=== PATIENT | female | born 1985 | race Caucasian/White ===

== ENCOUNTER 2022-12-28 13:53 | Outpatient (CLI) | payer BC, SELFPAY ==
--- NOTE | 2022-12-28 14:00 | CRLHL7_ITS ---
For Patients: As a result of the Cures Act, medical imaging exams and procedure reports are released immediately into your electronic medical record. You may view this report before your referring provider. If you have questions, please contact your health care provider. INDICATION: First trimester scan, establish dates. COMPARISON: None. TECHNIQUE: Real-time lake-scale imaging of the pelvis was performed. FINDINGS: Sonographic imaging demonstrates a single living intrauterine gestation. The embryo demonstrates a regular cardiac rate measuring 173 beats per minute. The embryo`s crown-rump length measurement of 4.2 cm corresponds to a gestational age of 11 weeks 1 day with a sonographic due date of . There is a normal-appearing yolk sac. There are no gross abnormalities noted within the embryo at this early state of development. The gestational sac has a normal appearance. There is no evidence of a perigestational hemorrhage. The amount of fluid within the sac appears appropriate for gestational age. The cervix is closed. The myometrium appears normal. The ovaries are not visualized. There are no suspicious fluid collections noted in the cul-de-sac. IMPRESSION: Single living intrauterine with sonographic gestational age 11 weeks 1 day and sonographic due date 07/18/2023. Dictated by Jeffrey Royal MD @ 12/28/2022 3:53:39 PM (Electronically Signed)
== END 2022-12-28 13:54 | disposition home or self-care (01) ==
LOC: US 13:54
PROVIDERS: PCP Family Medicine; Visit Provider Registered Nurse
DX: Z34.91 Encounter for supervision of normal pregnancy, unspecified, first trimester (principal); Z3A.09 9 weeks gestation of pregnancy
CPT/HCPCS: 76817; 82565; 82570; 84156; 84450; 84460; 84520; 84550; 86592; 86703; 86762; 86787; 86803; 86850; 86900; 86901; 87086; 87340; 87491; 87591

== ENCOUNTER 2023-01-11 10:43 | Outpatient (CLI) | payer BC, SELFPAY | END 2023-01-11 10:44 | disposition home or self-care (01) | PROVIDERS: PCP Family Medicine; Referring Provider Family Medicine; Visit Provider Obstetrics & Gynecology | DX: O26.891 Other specified pregnancy related conditions, first trimester (principal); R10.9 Unspecified abdominal pain; Z3A.13 13 weeks gestation of pregnancy | CPT/HCPCS: 87086 ==

== ENCOUNTER 2023-02-27 13:30 | Outpatient (CLI) | payer BC, SELFPAY | END 2023-02-27 13:31 | disposition home or self-care (01) | LOC: US 13:30 | PROVIDERS: PCP Family Medicine; Visit Provider Pediatrics Neonatal-Perinatal Medicine | DX: O09.522 Supervision of elderly multigravida, second trimester (principal); O98.512 Other viral diseases complicating pregnancy, second trimester; U07.1 COVID-19; Z3A.19 19 weeks gestation of pregnancy | CPT/HCPCS: 76811 ==

== ENCOUNTER 2023-04-22 13:34 | Outpatient (CLI) | payer BC, SELFPAY | END 2023-04-22 13:35 | disposition home or self-care (01) | LOC: NFLDREF 04-25 07:34 | PROVIDERS: PCP Family Medicine; Referring Provider Family Medicine; Visit Provider Obstetrics & Gynecology | DX: Z34.92 Encounter for supervision of normal pregnancy, unspecified, second trimester (principal); Z3A.27 27 weeks gestation of pregnancy | CPT/HCPCS: 86592 ==

== ENCOUNTER 2023-04-29 12:45 | Outpatient (CLI) | payer BC, SELFPAY ==
--- NOTE | 2023-04-29 13:00 | CRLHL7_ITS ---
For Patients: As a result of the Century Cures Act, medical imaging exams and procedure reports are released immediately into your electronic medical record. You may view this report before your referring provider. If you have questions, please contact your health care provider. INDICATION: Hypertension. COMPARISON: 02/27/2023 TECHNIQUE: Real time lake scale imaging of the fetus was performed as well as color Doppler and spectral Doppler analysis of the umbilical artery. FINDINGS: Sonographic imaging demonstrates a single living intrauterine gestation. Fetus demonstrates a regular cardiac rate of 134 beats per minute. Fetus has a variable position. The placenta lies anteriorly. Amniotic fluid volume appears normal and there is a single deepest vertical pocket: 6.5 cm. The estimated weight is 1362gm which lies at the 63rd %. On the prior OB ultrasound exam dated 02/27/2023 the estimated weight was at the 63rd%. BPD 44th percentile. HC 38th percentile. AC 79th percentile. FL 34th percentile. The HC/AC ratio measures 1.05 range (0.99-1.21). IMPRESSION: Sonographic gestational age 29 weeks 1 day and sonographic due date 07/14/2023. Estimated weight 63rd percentile. Abdominal circumference 79th percentile. Dictated by Jeffrey Royal MD @ 04/30/2023 4:55:10 PM (Electronically Signed)
== END 2023-04-29 12:46 | disposition home or self-care (01) ==
LOC: US 12:46
PROVIDERS: PCP Family Medicine; Visit Provider Obstetrics & Gynecology
DX: O10.913 Unspecified pre-existing hypertension complicating pregnancy, third trimester (principal); Z3A.29 29 weeks gestation of pregnancy
CPT/HCPCS: 76816

== ENCOUNTER 2023-05-27 12:56 | Outpatient (CLI) | payer BC, SELFPAY ==
--- NOTE | 2023-05-27 13:00 | CRLHL7_ITS ---
For Patients: As a result of the Century Cures Act, medical imaging exams and procedure reports are released immediately into your electronic medical record. You may view this report before your referring provider. If you have questions, please contact your health care provider. INDICATION: HYPERTENSION TECHNIQUE: Real time lake scale imaging of the fetus was performed. COMPARISON: 04/29/2023 FINDINGS: Sonographic imaging demonstrates a single living intrauterine gestation. Fetus demonstrates a regular cardiac rate of 171 beats per minute. Fetus has a vertex position. The placenta lies anteriorly. Amniotic fluid volume appears normal and there is a single deepest pocket of 8.1 cm. SARA 17.3 cm. The estimated weight is 2325gm which lies at the 83rd %. On the prior OB ultrasound dated 04/29/2023 the estimated weight was at the 63rd percentile. BPD 82nd percentile. HC 76th percentile. AC greater than 97th percentile. FL 6th percentile. The fetus was active and demonstrated normal breathing movements. There was normal flexion and extension of the trunk and extremities. IMPRESSION: Normal biophysical profile score 8/8. Sonographic gestational age 33 weeks 6 days and sonographic due date 07/09/2023. Sonographic age 9 days ahead of the clinical age. Estimated weight 83rd percentile. Abdominal circumference greater than 97th percentile. Dictated by Jeffrey Royal MD @ 05/28/2023 10:34:05 AM (Electronically Signed)
== END 2023-05-27 12:57 | disposition home or self-care (01) ==
LOC: US 12:57
PROVIDERS: PCP Family Medicine; Visit Provider Obstetrics & Gynecology
DX: O10.913 Unspecified pre-existing hypertension complicating pregnancy, third trimester (principal); Z3A.30 30 weeks gestation of pregnancy
CPT/HCPCS: 76816; 76819

== ENCOUNTER 2023-06-03 13:06 | Outpatient (CLI) | payer BC, SELFPAY ==
--- NOTE | 2023-06-03 13:00 | CRLHL7_ITS ---
For Patients: As a result of the Century Cures Act, medical imaging exams and procedure reports are released immediately into your electronic medical record. You may view this report before your referring provider. If you have questions, please contact your health care provider. INDICATION: ESSENTIAL HYPERTENSION COMPARISON: 05/27/2023 TECHNIQUE: Real time lake scale imaging of the fetus was performed. Without non-stress testing. FINDINGS: Sonographic imaging demonstrates a single living intrauterine gestation. Fetus demonstrates a regular cardiac rate of 136 beats per minute. Fetus has a cornelius breech position. The amniotic fluid volume appears normal and there is a single deepest pocket measurement of 6.8 cm. The fetus was active and demonstrated normal breathing movements. There was normal flexion and extension of the trunk and extremities. IMPRESSION: Normal biophysical profile score of 8 out of 8. Dictated by Jeffrey Royal MD @ 06/04/2023 12:27:12 PM (Electronically Signed)
== END 2023-06-03 13:07 | disposition home or self-care (01) ==
LOC: US 13:08
PROVIDERS: PCP Family Medicine; Visit Provider Obstetrics & Gynecology
DX: O10.919 Unspecified pre-existing hypertension complicating pregnancy, unspecified trimester (principal)
CPT/HCPCS: 76819

== ENCOUNTER 2023-06-10 14:16 | Outpatient (CLI) | payer BC, SELFPAY ==
--- NOTE | 2023-06-10 14:00 | CRLHL7_ITS ---
For Patients: As a result of the Century Cures Act, medical imaging exams and procedure reports are released immediately into your electronic medical record. You may view this report before your referring provider. If you have questions, please contact your health care provider. INDICATION: Leg pain and swelling TECHNIQUE: Ultrasound venous duplex lower left extremity. Compression venous exam was performed using lake-scale, color Doppler, and spectral Doppler analysis. COMPARISON: None. FINDINGS: Sonographic imaging demonstrates the left common femoral, deep femoral, superficial femoral, popliteal, posterior tibial and greater saphenous and the contralateral right common femoral veins to be fully compressible with normal color Doppler blood flow. IMPRESSION: Normal left lower extremity venous ultrasound, no sign of deep venous thrombosis. Dictated by Mayito Hernandez MD @ 06/10/2023 3:31:04 PM (Electronically Signed)
== END 2023-06-10 14:17 | disposition home or self-care (01) ==
LOC: US 14:16
PROVIDERS: PCP Family Medicine; Visit Provider Obstetrics & Gynecology
DX: O10.919 Unspecified pre-existing hypertension complicating pregnancy, unspecified trimester (principal)
CPT/HCPCS: 76819; 87081; 87653; 93971

== ENCOUNTER 2023-06-21 10:46 | Outpatient (CLI) | payer BC, SELFPAY ==
--- NOTE | 2023-06-21 11:00 | CRLHL7_ITS ---
For Patients: As a result of the Century Cures Act, medical imaging exams and procedure reports are released immediately into your electronic medical record. You may view this report before your referring provider. If you have questions, please contact your health care provider. INDICATION: Hypertension COMPARISON: 06/10/2023 TECHNIQUE: Real time lake scale imaging of the fetus was performed. Without non-stress testing. FINDINGS: Sonographic imaging demonstrates a single living intrauterine gestation. Fetus demonstrates a regular cardiac rate of 145 beats per minute. Fetus has a vertex position. The amniotic fluid volume appears normal and there is a single deepest pocket measurement of 7.6 cm. The fetus was active and demonstrated normal breathing movements. There was normal flexion and extension of the trunk and extremities. IMPRESSION: Normal biophysical profile score of 8 out of 8. Dictated by Jeffrey Royal MD @ 06/21/2023 1:25:01 PM (Electronically Signed)
== END 2023-06-21 10:47 | disposition home or self-care (01) ==
LOC: US 10:46
PROVIDERS: PCP Family Medicine; Visit Provider Obstetrics & Gynecology
DX: O09.523 Supervision of elderly multigravida, third trimester (principal); O10.913 Unspecified pre-existing hypertension complicating pregnancy, third trimester; Z3A.36 36 weeks gestation of pregnancy
CPT/HCPCS: 76819

== ENCOUNTER 2023-06-25 12:52 | Outpatient (CLI) | payer BC, SELFPAY ==
--- NOTE | 2023-06-25 13:00 | CRLHL7_ITS ---
For Patients: As a result of the Century Cures Act, medical imaging exams and procedure reports are released immediately into your electronic medical record. You may view this report before your referring provider. If you have questions, please contact your health care provider. INDICATION: hypertension TECHNIQUE: Real time lake scale imaging of the fetus was performed . COMPARISON: 06/21/2023 FINDINGS: Sonographic imaging demonstrates a single living intrauterine gestation. Fetus demonstrates a regular cardiac rate of 139 beats per minute. Fetus has a vertex position. The placenta lies anteriorly. Amniotic fluid volume appears normal and there is a single deepest pocket of 6.6 cm. The estimated weight is 3556gm which lies at the 94th %. On the prior OB ultrasound dated 05/27/2023 the estimated weight was at the 83rd percentile. BPD 97th percentile. HC 83rd percentile. AC greater than 97th percentile. FL less than 3rd percentile. The fetus was active. Absent breathing movements. There was normal flexion and extension of the trunk and extremities. IMPRESSION: Biophysical profile 03/28. Sonographic gestational age 38 weeks 0 days and sonographic due date 07/09/2023. Sonographic age 9 days ahead of the clinical age. Estimated weight 94th percentile. Abdominal circumference greater than 97th percentile. FL less than 3rd percentile. Dictated by Jeffrey Royal MD @ 06/25/2023 3:00:22 PM (Electronically Signed)
== END 2023-06-25 12:53 | disposition home or self-care (01) ==
LOC: US 12:52
PROVIDERS: PCP Family Medicine; Visit Provider Obstetrics & Gynecology
DX: O10.913 Unspecified pre-existing hypertension complicating pregnancy, third trimester (principal); Z3A.38 38 weeks gestation of pregnancy
CPT/HCPCS: 76816; 76819

== ENCOUNTER 2023-07-01 12:41 | Outpatient (CLI) | payer BC, SELFPAY ==
--- NOTE | 2023-07-01 13:00 | CRLHL7_ITS ---
For Patients: As a result of the Century Cures Act, medical imaging exams and procedure reports are released immediately into your electronic medical record. You may view this report before your referring provider. If you have questions, please contact your health care provider. INDICATION: Hypertension. COMPARISON: OB ultrasound 06/25/2023. TECHNIQUE: Ultrasound OB pelvis biophysical profile. Real time lake scale imaging of the fetus was performed without non-stress testing. FINDINGS: Sonographic imaging demonstrates a single living intrauterine gestation. The fetus demonstrates a regular cardiac rate of 144 beats per minute. The fetus has a cephalic orientation. The placenta lies anteriorly. Single deepest pocket measures 3.6 cm (2/2). The fetus was active (2/2). There was normal flexion and extension of the trunk and extremities (2/2). The fetus demonstrated normal breathing movements (2/2). IMPRESSION: Normal biophysical profile score 8 out of 8. Dictated by Sravanthi Bueno MD @ 07/02/2023 11:14:51 PM (Electronically Signed)
== END 2023-07-01 12:42 | disposition home or self-care (01) ==
LOC: US 12:41
PROVIDERS: PCP Family Medicine; Visit Provider Obstetrics & Gynecology
DX: O16.9 Unspecified maternal hypertension, unspecified trimester (principal); Z3A.00 Weeks of gestation of pregnancy not specified
CPT/HCPCS: 76819; 82565; 82570; 84156; 84450; 84460; 84520

== ENCOUNTER 2023-07-08 15:23 | Inpatient (IN) | payer BC, SELFPAY ==
[2023-07-08] VITALS (16 sets, daily range): BP systolic 121–162; BP diastolic 59–87; PULSE 69–84; RESP 18; TEMP 36.6–36.7; O2SAT 99; BMI 38.8
[2023-07-08] MEDS: miSOPROStoL 25 MCG/0.25 TABLET VAGINAL ×3 (16:18→23:18)
--- NOTE | 2023-07-08 16:35 | P.LDBA_ITS ---
Subjective History of Present Illness Time Seen by Provider: 21:14 Date Seen: 07/08/23 Narrative: Patient is being admitted to Labor and Delivery for induction of labor to due concern for superimposed preeclampsia and 6/10 on BPP. She is a 38 year old at 38.4 weeks gestation. Her full history and physical was dictated by myself on 06/21/2023. Please see this for details. Evert was seen in clinic today for routine care. She is getting surveillance due to chronic hypertension. Until this point, she had not needed titration on her antihypertensive medications through the entirety of . Her PreE labs were also wnl limit so we decided for her to schedule and IOL at 39 weeks given then that is a well controlled chronic hypertensive. Evert is doing well without any issues today. However, BPP is 6/8 (-2 for breathing) so she was placed on the NST. Her BP is also of concern. She was having BP persistently in the 140s/80s. This is not her baseline and abrupt change for her. Pre E labs within normal limits with protein creatinine ratio of 0. However, her NST had some variable decelerations giving her total BPP score of 6/10. With the BPP and elevated BP above her baseline, my recommendation is for delivery. She was initially very overwhelmed by the new but understands why we need to move towards delivery. SVE performed: dry perineium, 0.5/50/-4, medium, posterior. IOL consent signed. Active movement. Denies LOF, vaginal bleeding or abnormal vaginal discharge. Patient has minimal palpable contractions. Specific Issues/Plans : Jim. Baby: Girl! Vin Vaughn 1. AMA Considering Mat21 Level 2 FAS: No trisomy markers, agree with follow up scan at 32-34 weeks. Placenta is anterior not previa, three-vessel umbilical cord with central insertion, cervix closed and measuring 3.5 cm normal, normal amount of amniotic fluid, BPD: 56 percentile, HC: 31 percentile, AC: 68th percentile, FL: 42 percentile, EFW 335 g, 63rd percentile. 2. Chronic HTN: Labetalol 200mg BID and Hydralazine 25mg TID. AVOID NIFEDIPINE (allergy) Baseline pre E labs: normal EKG at first OB: normal Recommend daily baby aspirin at 12 weeks Patient to monitor BP weekly at home until 32 weeks, then twice weekly thereafter Level 2 ultrasound: As above. Growth u/s at 28 weeks q4 weeks: scheduled Weekly testing to begin at 32 weeks: scheduled Weekly pre E labs/ drawn at 37 weeks: normal Delivery 37-39 6/7 weeks if no worsening of HTN Early PP visit to check BP 3. BMI 35.3. 4. Covid in (in October before positive UPT) Level 2 u/s: scheduled Growth u/s 28-32 weeks 5. Anemia, with Hb 10.2 at 28 weeks. Begin iron supplementation QOD. * Repeat Hb at 34 weeks: 10.9 . 37 weeks: 10.8 Flu: completed Covid: not vaccinated. Recommended. Reviewed risks of covid infection. Tdap: 05/13/23 OB - Problem Based A/P Additional Plan (1) Chronic hypertension: Status: Acute (2) Obesity (BMI 30-39.9): Status: Acute (3) Advanced maternal age (AMA) in : Status: Acute (4) Anxiety: Status: Acute Delivery/Labor/Induction Plan Plan: induction Induction method: per misoprostol protocol OB Exam Physical Exam Vital signs: Pulse BP Pulse Ox 81 135/81 99 07/08/23 15:27 07/08/23 15:27 07/08/23 15:27 Narrative: Physical exam: General: No acute distress Psych: Alert and oriented x3, full affect HEENT: Normocephalic, atraumatic Lungs: Unlabored breathing Neuro: No focal deficit. Mentating appropriately Pelvic exam: ft/50/ballotable, medium, posterior.
[2023-07-08] MEDS: LABETALOL HCL 100 MG TABLET 200 MG PO (19:48)
[2023-07-08] MEDS: HYDRALAZINE 25 MG TABLET PO (19:49)
[2023-07-09] VITALS (56 sets, daily range): BP systolic 104–210; BP diastolic 57–95; PULSE 64–97; RESP 16–18; TEMP 36.8–37.1
[2023-07-09] MEDS: miSOPROStoL 25 MCG/0.25 TABLET VAGINAL ×2 (03:29→07:39)
[2023-07-09] MEDS: HYDRALAZINE HCL 20 MG/ML inj IVP ×2 (04:42→05:29)
[2023-07-09] MEDS: MAGNESIUM IV 4 GM/100 ML PIGGYBACK IVPB (04:56)
[2023-07-09] MEDS: LACTATED RINGERS 1000 ML 1,000 ML 75 ML IV ×2 (04:58→17:34)
[2023-07-09 05:27] LABS: Hemoglobin* 11.6 gm/dL (12.0-16.0); Mean Corpuscular HGB Conc 32 gm/dL (32-36); Mean Corpuscular Hemoglobin 26 pg (26-34); Mean Corpuscular Volume 81 fL (80-100); Platelet Count* 290 K/uL (140-440); Red Blood Count 4.42 m/uL (4.00-5.20)
[2023-07-09 05:31] LABS: Slide Review Reflex No
[2023-07-09 05:41] LABS: Alanine Aminotransferase* 23 U/L (4-35); Aspartate Amino Transferase* 25 U/L (12-35); Blood Urea Nitrogen* 9 mg/dL (5-24); Creatinine* 0.6 mg/dL (0.5-1.5); Est. Creatinine Clearance* 126.99; Estimated Glomerular Filt Rate 117 ml/min
[2023-07-09] MEDS: ETHYL CHLORIDE 1 APPLICATION 1 APPLIC TOPICAL (06:03)
[2023-07-09] MEDS: HYDRALAZINE 25 MG TABLET PO ×3 (08:42→22:21)
[2023-07-09] MEDS: LABETALOL HCL 100 MG TABLET 200 MG PO ×2 (08:42→22:21)
[2023-07-09] MEDS: ACETAMINOPHEN 500 MG TABLET 1000 MG PO (08:57)
[2023-07-09] MEDS: fentaNYL 100 MCG/2 ML inj IVP ×2 (10:24→18:37)
--- NOTE | 2023-07-09 11:09 | PM.OBPNL ---
Subjective Date Seen: 07/09/23 Narrative: Cinthia is a 38-year-old woman at 38 weeks, 5 days today who presented on 07/08/2023 for induction of labor for indication of chronic hypertension with suspected superimposed preeclampsia. She was maintained on labetalol 200 mg b.i.d. and hydralazine 25 mg t.i.d. prior to admission yesterday. She had severe range blood pressures overnight last night, and was diagnosed with severe preeclampsia superimposed on chronic hypertension based on these criteria. She was started on magnesium sulfate for seizure prophylaxis. She has received a total 5 doses of misoprostol for cervical ripening. She reports she did not sleep well. She is feeling uterine cramping. Objective Vital Signs: Last Vital Signs Temp 98.4 F 07/09/23 10:29 Pulse 76 07/09/23 10:20 Resp 17 07/09/23 10:29 BP 123/66 07/09/23 10:20 Pulse Ox 99 07/08/23 15:27 Her last severe range blood pressure was at 5:26 a.m.. Comments: General: Lying in bed, appears tired Abdomen: Soft, nontender, gravid, EFW 8.5 lbs by Gurjit's Cervix: 1 cm, long, high, posterior, firm tracing: Baseline 140, no accelerations in last 30 minutes, no decelerations, moderate variability Assessment Assessment: induction ongoing Status: Category l Tracing Comments: Reassuring status. Suspected macrosomia on ultrasound 06/29/2023: Cephalic, normal fluid, EFW 3556 g, 94%. BPD 97%, HC 83%, AC >97%, FL <3% Labor Progress: Cervix still unfavorable after 5 doses of Cytotec for cervical ripening Maternal Status: Preeclampsia with severe features based on BP criteria. HELLP labs normal at last check. Currently normotensive. Maintained on PO labetalol and hydralazine prior to admit. Allergic to nifedipine. Currently on magnesium sulfate for seizure prophylaxis. Plan Plan: Patient was positioned in dorsal lithotomy position. A sterile speculum was inserted and cervix visualized. Patient had to be repositioned on the bed due to her cervical location being high and posterior. Cook catheter was inserted in aseptic technique into the lower uterine segment. The intrauterine and intravaginal balloons were both inflated to a total of 60 mL. Speculum was removed before inflation of the vaginal balloon. Patient tolerated the the procedure with difficulty. Begin low-dose Pitocin protocol in 30 minutes. Continuous monitoring. Continue HELLP labs every 6 hours. I will request that she be made NPO with sips of fluid at 2:00 p.m.. Given suspected macrosomia, I will avoid any operative vaginal delivery.
[2023-07-09 11:17] LABS: Hematocrit 33.4 % (33.0-51.0); Hemoglobin* 10.9 gm/dL (12.0-16.0); Mean Corpuscular HGB Conc 33 gm/dL (32-36); Mean Corpuscular Hemoglobin 26 pg (26-34); Mean Corpuscular Volume 81 fL (80-100); Platelet Count* 280 K/uL (140-440); Red Blood Count 4.15 m/uL (4.00-5.20); White Blood Count* 12.06 K/uL (4.50-11.00)
[2023-07-09 11:19] LABS: Slide Review Reflex No
[2023-07-09 11:32] LABS: Alanine Aminotransferase* 22 U/L (4-35); Aspartate Amino Transferase* 33 U/L (12-35); Blood Urea Nitrogen* 7 mg/dL (5-24); Creatinine* 0.5 mg/dL (0.5-1.5); Est. Creatinine Clearance* 152.38; Estimated Glomerular Filt Rate 122 ml/min
[2023-07-09] MEDS: OXYTOCIN 30 unit/500 ML in NS 30 UNIT/500 ML BAG IVPB (11:56)
[2023-07-09 17:30] LABS: Hematocrit 33.8 % (33.0-51.0); Mean Corpuscular HGB Conc 33 gm/dL (32-36); Mean Corpuscular Hemoglobin 26 pg (26-34); Mean Corpuscular Volume 81 fL (80-100); Platelet Count* 266 K/uL (140-440); Red Blood Count 4.18 m/uL (4.00-5.20); White Blood Count* 11.33 K/uL (4.50-11.00)
[2023-07-09 17:36] LABS: Slide Review Reflex No
[2023-07-09 17:45] LABS: Alanine Aminotransferase* 23 U/L (4-35); Aspartate Amino Transferase* 24 U/L (12-35); Blood Urea Nitrogen* 7 mg/dL (5-24); Creatinine* 0.7 mg/dL (0.5-1.5); Est. Creatinine Clearance* 108.85; Estimated Glomerular Filt Rate 113 ml/min
--- NOTE | 2023-07-09 18:10 | PM.OBPNL ---
Subjective Date Seen: 07/09/23 Narrative: Cinthia is a 38-year-old woman at 38 weeks, 5 days today who presented on 07/08/2023 for induction of labor for indication of chronic hypertension with suspected superimposed preeclampsia. She was maintained on labetalol 200 mg b.i.d. and hydralazine 25 mg t.i.d. prior to admission yesterday. She had severe range blood pressures overnight last night, and was diagnosed with severe preeclampsia superimposed on chronic hypertension based on these criteria. She was started on magnesium sulfate for seizure prophylaxis. She has received a total 5 doses of misoprostol for cervical ripening, then had Cook catheter placed for cervical ripening at 10:00 a.m., followed by low-dose Pitocin. Per her nurse report, she is currently sleeping. She has received IV narcotics for cramping. Objective Vital Signs: Last Vital Signs Temp 98.4 F 07/09/23 10:29 Pulse 71 07/09/23 17:20 Resp 17 07/09/23 10:29 BP 149/75 H 07/09/23 17:20 Pulse Ox 99 07/08/23 15:27 Comments: tracing: Baseline 135, accelerations present, no decelerations, moderate variability Labs at 5:00 p.m.: Hemoglobin 11.0, hematocrit 33.8, platelets 266 BUN 7, creatinine 0.7 AST 24, ALT 23 Assessment Assessment: induction ongoing Status: Category l Tracing Comments: Reassuring status. Suspected macrosomia on ultrasound 06/29/2023: Cephalic, normal fluid, EFW 3556 g, 94%. BPD 97%, HC 83%, AC >97%, FL <3% Labor Progress: Cervix still unfavorable after 5 doses of Cytotec for cervical ripening. Cook catheter to be in place until 10:00 p.m.. It is uncertain how frequent she is actually having contractions; at times, it appears as though she has irritability, and other times that she has discrete contractions anywhere between every 1 and 3 minutes. Regardless, she is still sleeping; not consistent with active labor. Maternal Status: Preeclampsia with severe features based on BP criteria. HELLP labs normal at last check. Currently mildly hypertensive. Maintained on PO labetalol and hydralazine prior to admit. Allergic to nifedipine. Currently on magnesium sulfate for seizure prophylaxis. Plan Plan: Continue low-dose Pitocin protocol. Continuous monitoring. Continue HELLP labs every 6 hours. Continue NPO until her Cook catheter is removed. At that time, 10:00 p.m., I will check her cervix. If her cervix is favorable, I plan to which rupture membranes and continue Pitocin augmentation. If her cervix continues to be unfavorable, I will recommend delivery.
[2023-07-09] MEDS: CALCIUM CARBONATE 500 MG CHEW PO (18:28)
[2023-07-10] VITALS (87 sets, daily range): BP systolic 92–168; BP diastolic 50–101; PULSE 29–100; RESP 16–18; TEMP 36.3–37; O2SAT 16–100
[2023-07-10] LABS: Hematocrit 36.4 % (33.0-51.0); Hemoglobin* 12.2 gm/dL (12.0-16.0); Mean Corpuscular HGB Conc 34 gm/dL (32-36); Mean Corpuscular Hemoglobin 27 pg (26-34); Mean Corpuscular Volume 81 fL (80-100); Platelet Count* 246 K/uL (140-440); Red Blood Count 4.51 m/uL (4.00-5.20); White Blood Count* 14.14 K/uL (4.50-11.00)
[2023-07-10 00:01] LABS: Slide Review Reflex No
[2023-07-10 00:16] LABS: Alanine Aminotransferase* 24 U/L (4-35); Aspartate Amino Transferase* 30 U/L (12-35); Blood Urea Nitrogen* 8 mg/dL (5-24); Creatinine* 0.6 mg/dL (0.5-1.5); Est. Creatinine Clearance* 126.99; Estimated Glomerular Filt Rate 117 ml/min
[2023-07-10] MEDS: ROPIVACAINE 0.2% 100 ml 100 ML 12 MG EPIDURAL (03:48)
[2023-07-10] MEDS: LACTATED RINGERS 1000 ML 1,000 ML 975 ML IV ×2 (03:50→05:37)
--- NOTE | 2023-07-10 04:11 | P.ANBPRC_ITS ---
[facility] Medical History (Updated 06/10/23 @ 14:09 by Joya Forbes MD) Obesity (BMI 30-39.9) ?E66.9 - Obesity, unspecified (ICD-10) Anxiety ?F41.9 - Anxiety disorder, unspecified (ICD-10) Surgical History (Updated 07/19/22 @ 10:02 by Cinthia Garcia PA-C) History of cholecystectomy ?Z90.49 - Acquired absence of other specified parts of digestive tract (ICD- 10) Family History (Updated 07/19/22 @ 10:03 by Cinthia Garcia PA-C) Mother High blood pressure Diabetes Breast cancer Father High blood pressure Social History (Updated 07/26/22 @ 12:16 by Cinthia Garcia PA-C) Narrative: [employer]. Non-smoker. Alcohol use: 2-3 per month. What is your current living situation?: I presently have a place to live Problems where you live: no known problems In the past 12 months, utilities in danger of being shut off: no In past 12 months, lack of transportation kept you from medical appts, meetings, work, or getting things needed for daily living: no In the past 12 mos, have been you worried that your food would run out before you had money to buy more?: never true In the past 12 mos, the food you bought just didn't last and you didn't have money to buy more?: never true Smoking Status: Never smoker How often does anyone, including family, friends and others, physically hurt you : never How often does anyone, including family, friends and others, insult or talk down to you: never How often does anyone, including family, friends and others, threaten you with harm: never How often does anyone, including family, friends and others, scream or curse at you: never Little interest or pleasure in doing things: not at all Feeling down, depressed, or hopeless: not at all Meds Home Medications and Allergies Home Medications Medication Instructions Recorded Confirmed Type cetirizine 10 mg capsule (Zyrtec) 10 mg PO QDAY PRN 07/26/22 07/08/23 History hydralazine 25 mg tablet 25 mg PO TID 07/26/22 07/08/23 History labetalol 100 mg tablet 200 mg PO BID 07/26/22 07/08/23 History [id number] 65 mg 1 pkg PO DAILY 01/23/23 07/08/23 History iron-folic acid 1 mg-dha 250 mg oral margarita Allergies Allergy/AdvReac Type Severity Reaction Status Date / Time nifedipine Allergy Verified 07/08/23 16:26 shellfish Allergy Severe Uncoded 07/08/23 16:26 Results Labs Labs: Laboratory Results - last 24 hr 07/09/23 07/09/23 07/09/23 04:55 11:09 17:21 WBC 10.90 12.06 H 11.33 H RBC 4.42 4.15 4.18 Hgb 11.6 L 10.9 L 11.0 L Hct 36.0 33.4 33.8 MCV 81 81 81 MCH 26 26 26 MCHC 32 33 33 Plt Count 290 280 266 BUN 9 7 7 Creatinine 0.6 0.5 0.7 Estimated Creat Clear 126.99 152.38 108.85 Estimated GFR 117 122 113 AST 25 33 24 ALT 23 22 07/09/23 23:55 WBC 14.14 H RBC 4.51 Hgb 12.2 Hct 36.4 MCV 81 MCH 27 MCHC 34 Plt Count 246 BUN 8 Creatinine 0.6 Estimated Creat Clear 126.99 Estimated GFR 117 AST 30 ALT 24 Vital Signs Vital Signs: Last Vital Signs Temp 97.9 F 07/10/23 04:03 Pulse 81 07/10/23 04:10 Resp 16 07/10/23 04:03 BP 128/65 07/10/23 04:10 Pulse Ox 99 07/10/23 04:08 Weight: 115.938 kg Height: 172.72 cm Anesthesia Procedures Epidural Insertion Patient Location: OB Start Time: 03:15 Stop Time: 04:10 Start Date: 07/10/23 Stop Date: 07/10/23 Reason for Block: procedure for pain Patient Position: sitting Performed By: Romeo Fernandez Preanesthetic Checklist: IV checked, risks and benefits discussed, surgical consent, monitors and equipment checked, pre-op evaluation, timeout performed and anesthesia consent Prep: chlorhexidine gluconate Monitoring: blood pressure monitoring, continuous pulse oximetry and heart rate Approach: midline Vertebral Space: lumbar (1-5) Epidural Technique: SHAKIRA saline Needle Type: Tuohy needle Injection Technique: continuous catheter Needle gauge: 17 Needle Length (cm): 10 cm Needle Insertion Depth (cm): 8 Catheter Gauge: 19 Catheter Type: multi-orifice Catheter at skin depth (cm): 14 Test Dose Result: negative and lidocaine 1.5% with epinephrine 1 to 200,000
[2023-07-10] MEDS: PHENYLEPHRINE 100 MCG/ML SYRINGE IVP ×3 (04:41→05:30)
--- NOTE | 2023-07-10 06:18 | PM.OBPNL ---
Subjective Date Seen: 07/10/23 Narrative: Cinthia is a 38-year-old woman at 38 weeks, 5 days today who presented on 07/08/2023 for induction of labor for indication of chronic hypertension with suspected superimposed preeclampsia. She was maintained on labetalol 200 mg b.i.d. and hydralazine 25 mg t.i.d. prior to admission yesterday. She had severe range blood pressures overnight last night, and was diagnosed with severe preeclampsia superimposed on chronic hypertension based on these criteria. She was started on magnesium sulfate for seizure prophylaxis. She has received a total 5 doses of misoprostol for cervical ripening, then had Cook catheter placed for cervical ripening at 10:00 a.m. on 07/09/23, followed by low-dose Pitocin. She had SROM at around 9:40 PM on 07/09/23, and has had pitocin for augmentation all night. She had epidural for pain control in the early AM. I was contacted by Center at 5:18 a.m. with report of recurrent late decelerations with minimal variability. Per my review of the heart rate strip, these began at 4:48 am. Phenylephrine was given twice for relatively lower blood pressures, patient was repositioned. I recommended cessation of Pitocin. Objective Vital Signs: Last Vital Signs Temp 97.5 F L 07/10/23 05:48 Pulse 90 07/10/23 06:10 Resp 16 07/10/23 05:48 BP 131/56 L 07/10/23 06:10 Pulse Ox 99 07/10/23 06:01 Comments: Per RN, cervical exam unchanged from prior to epidural at 5 cm, 70% and -2 station tracing: Baseline 145, minimal variability with recurrent late decels from 4:48 - 5:32 AM, then with return of moderate variability, now with accelerations Labs 11:55 p.m. on 07/09/2023: Hemoglobin 12.2, hematocrit 36.4, platelets 246 BUN 8, creatinine 0.6 AST 30, ALT 24 Assessment Assessment: induction ongoing Status: Category l Tracing Comments: Nonreassuring status. Possible uteroplacental insufficiency. Suspected macrosomia on ultrasound 06/29/2023: Cephalic, normal fluid, EFW 3556 g, 94%. BPD 97%, HC 83%, AC >97%, FL <3% Labor Progress: She is on the verge of active labor at this time, but still likely remote from delivery Maternal Status: Preeclampsia with severe features based on BP criteria. HELLP labs normal at last check. Blood pressure stable. Normal urine output but blood-tinged urine is noted. Maintained on PO labetalol and hydralazine prior to admit. Allergic to nifedipine. Currently on magnesium sulfate for seizure prophylaxis. Plan Plan: Pitocin was stopped after nursing report of recurrent late decels. was called for at 5:37 AM/ Continuous monitoring. Continue HELLP labs every 6 hours. We discussed risks of , including bleeding/hemorrhage, need for blood transfusion, infection, scarring, effect on future pregnancies and deliveries, risk of thromboembolism. We discussed likely postoperative restrictions and recovery. Consent form reviewed with and signed by patient.
--- NOTE | 2023-07-10 07:19 | PM.OBPRCCS ---
Procedure Date of procedure: 07/10/23 Procedure Done: Global Will [facility] bill your pro fee for this procedure?: Yes Procedure Description: PREOPERATIVE DIAGNOSIS: 1. 38 weeks, 6 days gestation 2. Preeclampsia with severe features 3. Nonreassuring status remote from delivery POSTOPERATIVE DIAGNOSIS: Melanocytic skin lesion of abdomen Otherwise same PROCEDURE: Primary low-transverse section Excision of melanocytic skin lesion of abdomen SURGEON: Christal Land MD ANESTHESIA: Epidural IV FLUIDS: 1000 mL crystalloid QBL: 631 mL FINDINGS: 1. Female infant, cephalic 0 P presentation, Apgars of 8 and 9, weight 7 lb, 9 oz 2. Normal appearance to uterus, bilateral tubes and ovaries. 3. 1 mm darkly pigmented macule approximately 5 cm superior to Pfannenstiel incision over the left abdomen COMPLICATIONS: None PROCEDURE IN DETAIL: Patient was taken to the operating room with IV running. She received cefazolin in preoperative prophylaxis. Epidural anesthesia had previously been administered. Lazo catheter was inserted. She was prepped and draped in the usual sterile fashion. Anesthesia was tested and found to be adequate. A low-transverse skin incision was made with a scalpel and carried through to the underlying layer of fascia with the scalpel. The subcutaneous fat was dissected off the underlying fascia bluntly. The fascia was nicked in the midline with a scalpel, and this incision was extended laterally with scissors. The rectus muscles were in the midline. Peritoneum was identified and entered bluntly. Bovie was used to widen this opening laterally. Suman O retractor was inserted and tightened down, providing excellent visualization of the lower uterine segment. The bladder reflection was found to be well below the planned site for hysterotomy. Low-transverse uterine incision was made with a scalpel. Incision was widened bluntly. The infant's head was grasped through the hysterotomy and delivered with the help of fundal pressure. The remainder of the body delivered without incident. Cord was clamped and cut after 30 seconds. Infant was handed off to attending nurses. The placenta was delivered with gentle traction on the cord. The uterus was cleaned of all clots and debris with the dry lap pad. Uterus was exteriorized. The hysterotomy was reapproximated with 0 Vicryl in a running, locked fashion. Two [id number] sutures of 0 Vicryl were placed in imbricating fashion. Hemostasis was noted. Uterine atony was noted around this time, and was managed with uterine massage, Pitocin, and buccal misoprostol. The adnexa were examined and noted to be normal in appearance. The cul-de-sac and gutters were cleansed with dampened laparotomy sponge, removing any further clots and debris. Uterus was returned to the abdomen. The Suman O retractor was removed. The hysterotomy was reexamined and found to be hemostatic. The peritoneum was reapproximated with 2 0 Vicryl in a running fashion. The rectus muscles were examined and found to be hemostatic. The fascia was reapproximated with 0 Vicryl in a running fashion. Subcutaneous fat was irrigated and Bovie used on oozing vessels. The subcutaneous fat was reapproximated with 2 0 plain gut suture in an interrupted fashion. The skin was closed with a subcuticular stitch of 4-0 Monocryl. Surgical glue was applied above this. The above described melanocytic skin lesion was completely excised with a 5 mm punch biopsy tool, amputated sharply, and sent to pathology. The skin was reapproximated with a subcuticular stitch of 4-0 Monocryl and covered with surgical glue. Patient tolerated procedure well was taken to recovery area in stable condition. [place] Infant total score - 1 minute: 8 total score - 5 minute: 9
--- NOTE | 2023-07-10 07:20 | SUR.OPER ---
tap block completed post procedure per test and turn up technician
--- NOTE | 2023-07-10 07:43 | W.ANESCHARGE ---
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
--- NOTE | 2023-07-10 07:44 | P.NB_ITS ---
Nerve Block Nerve Block Time Seen by Provider: 07:33 Date Seen: 07/10/23 Type of block requested by surgeon for post-operative analgesia: TAP Side: bilateral Time out performed: Yes Verification of patient name: Yes Verification of date of : Yes Site marking: site marked Name of person performing procedure: Romeo Fernandez Continuous monitoring Was continuous monitoring of O2 sat, B/P, lunchroom monitor, recorded every 15 minutes?: Yes Procedure Checklist: sterile prep, needles and gloves Ultrasound guided. Images saved: Yes Medications given in 5ml increments after negative aspiration: Marcaine %: 0.25 mL: 30 Needle gauge: 20 and Exparel mL: 10 Needle gauge: 20 Patient tolerated procedure well: Yes Additional comments: Injected in 5ml increments after negative aspiration Block Charges Block Charge (with Pro Fee): TAP Bilateral Use of Ultrasound Machine for Block: Yes- US Guidance/pain block
[2023-07-10] MEDS: DOCUSATE SODIUM 100 MG CAPSULE PO (09:00)
[2023-07-10] MEDS: LABETALOL HCL 100 MG TABLET 200 MG PO ×2 (09:00→19:47)
[2023-07-10] MEDS: HYDRALAZINE 25 MG TABLET PO ×3 (09:01→19:47)
[2023-07-10] MEDS: ACETAMINOPHEN 500 MG TABLET 1000 MG PO (09:01)
[2023-07-10 11:03] LABS: Basophils Percent Auto 0.1 % (0.0-3.0); Hematocrit 29.4 % (33.0-51.0); Hemoglobin* 9.7 gm/dL (12.0-16.0); Immature Granulocytes Pct Auto 0.1 %; Lymphocytes Percent Auto 7.1 % (20-44); Mean Corpuscular HGB Conc 33 gm/dL (32-36); Mean Corpuscular Hemoglobin 27 pg (26-34); Mean Corpuscular Volume 80 fL (80-100); Monocytes Percent Auto 4.7 % (0.0-11.0); Platelet Count* 250 K/uL (140-440); RDW Coefficient of Variation % 13.2 % (11.5-15.5); Red Blood Count 3.66 m/uL (4.00-5.20); White Blood Count* 14.76 K/uL (4.50-11.00)
[2023-07-10 11:07] LABS: Slide Review Reflex No
--- NOTE | 2023-07-10 11:19 | P.OBPN_ITS ---
OB - PN:Subj Subjective Date Seen: 07/10/23 Interval history: The patient feels okay.? The pain is well controlled with current medications.? She has no new complaints.? Urinary output is adequate and she is voiding without difficulty.? Was able to eat a sandwich in the afternoon. Has small amount of rubra lochia.She is and reports it is going well.?Blood pressures have been well controlled, no DATA GOVERNANCE ANALYST irritability symptoms nor evidence of Magnesium toxicity. OB - PN: Obj Exam Physical Exam: Vital signs: Temp Pulse Resp BP Pulse Ox O2 Del Method 97.4 F L 73 16 103/65 96 Room Air 07/10/23 07:39 07/10/23 08:09 07/10/23 08:09 07/10/23 08:09 07/10/23 08:09 07/10/23 08:09 Narrative: VITAL SIGNS: As noted above. GENERAL APPEARANCE: Alert, cooperative female in no acute distress. MOOD & AFFECT: Normal. HEART: Regular rate and rhythm without murmurs. LUNGS: Lungs are clear to auscultation bilaterally. No crackles, wheezes, or rhonchi. ABDOMEN: Soft, non-distended and appropriately tender, uterus well contracted at umbilicus. Incision covered by dressing. : Small amount of lochia EXTREMITIES: SCDs in place. Well perfused. Nontender. NEURO: Intact. Lazo catheter in place with concentrated urine, normal output. Urinary Catheter Management: Urethral: Cath placed during this visit: yes Urethral indwelling: Yes Reason for continuing: measure accurate output Insertion date: 07/09/23 Insertion time: 11:00 OB - PN: Obj Data Labs Labs: Laboratory Results - last 24 hr 07/09/23 07/09/23 07/09/23 11:09 17:21 23:55 WBC 12.06 H 11.33 H 14.14 H RBC 4.15 4.18 4.51 Hgb 10.9 L 11.0 L 12.2 Hct 33.4 33.8 36.4 MCV 81 81 81 MCH 26 26 27 MCHC 33 33 34 RDW Coeff of Gualberto Plt Count 280 266 246 Neut % (Auto) Lymph % (Auto) [place] % (Auto) Eos % (Auto) Baso % (Auto) Neut # (Auto) Lymph # (Auto) [place] # (Auto) Eos # (Auto) Baso # (Auto) Abs Immat Gran (auto) Imm/Tot Granulo (auto) BUN 7 7 8 Creatinine 0.5 0.7 0.6 Estimated Creat Clear 152.38 108.85 126.99 Estimated GFR 122 113 117 AST 33 24 30 ALT 22 23 24 07/10/23 10:52 WBC 14.76 H RBC 3.66 L Hgb 9.7 L Hct 29.4 L MCV 80 MCH 27 MCHC 33 RDW Coeff of Gualberto 13.2 Plt Count 250 Neut % (Auto) 88.0 H Lymph % (Auto) 7.1 L [place] % (Auto) 4.7 Eos % (Auto) 0.0 Baso % (Auto) 0.1 Neut # (Auto) 13.00 H Lymph # (Auto) 1.00 [place] # (Auto) 0.70 Eos # (Auto) 0.00 Baso # (Auto) 0.00 Abs Immat Gran (auto) 0.00 Imm/Tot Granulo (auto) 0.1 BUN Creatinine Estimated Creat Clear Estimated GFR AST ALT OB - PN: A/P Delivery Assessment and Plan (1) Chronic hypertension with superimposed preeclampsia: Problem details: Superimposed preeclampsia with severe features due to severey elevated blood pressures. Status: Acute Assessment and Plan: Magnesium sulfate infusion ongoing for seizure prophylaxis, to continue until 07/11/23 at around 7am. Continue HELLP labs every 6 hours. Continue close monitoring of I/O. Continue close monitoring of vital signs. Continue with PO antihypertensive regimen. (2) Obesity (BMI 30-39.9): Status: Acute Assessment and Plan: Obesity, section, severe preeclampsia on magnesium. Lovenox ordered as DVT prophylaxis. Will continue until discharged from hospital. (3) Advanced maternal age (AMA) in : Status: Acute (4) Anxiety: Status: Acute Plan day: 0 Plan: routine care
[2023-07-10 11:22] LABS: Creatinine* 0.6 mg/dL (0.5-1.5); Est. Creatinine Clearance* 126.99; Estimated Glomerular Filt Rate 117 ml/min
[2023-07-10 11:23] LABS: Alanine Aminotransferase* 22 U/L (4-35); Aspartate Amino Transferase* 26 U/L (12-35); Blood Urea Nitrogen* 9 mg/dL (5-24)
[2023-07-10 11:30] LABS: Magnesium* 5.3 mg/dL (1.5-2.6)
[2023-07-10] MEDS: KETOROLAC 30 MG/ML inj IVP ×2 (13:56→19:47)
[2023-07-10 17:34] LABS: Hematocrit 28.8 % (33.0-51.0); Hemoglobin* 9.5 gm/dL (12.0-16.0); Mean Corpuscular HGB Conc 33 gm/dL (32-36); Mean Corpuscular Hemoglobin 27 pg (26-34); Mean Corpuscular Volume 81 fL (80-100); Platelet Count* 259 K/uL (140-440); Red Blood Count 3.54 m/uL (4.00-5.20); White Blood Count* 12.59 K/uL (4.50-11.00)
[2023-07-10 17:37] LABS: Slide Review Reflex No
[2023-07-10] MEDS: ENOXAPARIN 40 MG/0.4 ML INJ SUBCUT (19:47)
[2023-07-10 23:09] LABS: Hematocrit 28.3 % (33.0-51.0); Hemoglobin* 9.2 gm/dL (12.0-16.0); Mean Corpuscular HGB Conc 33 gm/dL (32-36); Mean Corpuscular Hemoglobin 26 pg (26-34); Mean Corpuscular Volume 81 fL (80-100); Platelet Count* 239 K/uL (140-440); Red Blood Count 3.49 m/uL (4.00-5.20); White Blood Count* 11.36 K/uL (4.50-11.00)
[2023-07-10 23:12] LABS: Slide Review Reflex No
[2023-07-10 23:54] LABS: Alanine Aminotransferase* 19 U/L (4-35); Aspartate Amino Transferase* 28 U/L (12-35); Blood Urea Nitrogen* 11 mg/dL (5-24); Creatinine* 0.7 mg/dL (0.5-1.5); Est. Creatinine Clearance* 108.85; Estimated Glomerular Filt Rate 113 ml/min
[2023-07-11] VITALS (14 sets, daily range): BP systolic 107–171; BP diastolic 60–101; PULSE 64–86; RESP 16–18; TEMP 36.7–37; O2SAT 97–98
[2023-07-11] MEDS: LACTATED RINGERS 1000 ML 1,000 ML 75 ML IV (00:33)
[2023-07-11] MEDS: KETOROLAC 30 MG/ML inj IVP ×3 (01:55→13:59)
[2023-07-11 05:16] LABS: Hematocrit 28.2 % (33.0-51.0); Hemoglobin* 9.1 gm/dL (12.0-16.0); Mean Corpuscular HGB Conc 32 gm/dL (32-36); Mean Corpuscular Hemoglobin 26 pg (26-34); Mean Corpuscular Volume 82 fL (80-100); Platelet Count* 258 K/uL (140-440); Red Blood Count 3.45 m/uL (4.00-5.20); White Blood Count* 9.37 K/uL (4.50-11.00)
[2023-07-11 05:20] LABS: Slide Review Reflex No
[2023-07-11 05:36] LABS: Alanine Aminotransferase* 19 U/L (4-35); Aspartate Amino Transferase* 34 U/L (12-35); Blood Urea Nitrogen* 10 mg/dL (5-24); Creatinine* 0.6 mg/dL (0.5-1.5); Est. Creatinine Clearance* 126.99; Estimated Glomerular Filt Rate 117 ml/min
[2023-07-11] MEDS: DOCUSATE SODIUM 100 MG CAPSULE PO (08:35)
[2023-07-11] MEDS: LABETALOL HCL 100 MG TABLET 200 MG PO ×2 (08:36→20:43)
[2023-07-11] MEDS: HYDRALAZINE 25 MG TABLET PO ×3 (08:38→20:42)
[2023-07-11 10:23] LABS: Hematocrit 27.4 % (33.0-51.0); Hemoglobin* 8.8 gm/dL (12.0-16.0); Mean Corpuscular HGB Conc 32 gm/dL (32-36); Mean Corpuscular Hemoglobin 26 pg (26-34); Mean Corpuscular Volume 82 fL (80-100); Platelet Count* 243 K/uL (140-440); Red Blood Count 3.33 m/uL (4.00-5.20); Slide Review Reflex No; White Blood Count* 9.56 K/uL (4.50-11.00)
[2023-07-11 10:56] LABS: Alanine Aminotransferase* 20 U/L (4-35); Aspartate Amino Transferase* 28 U/L (12-35); Blood Urea Nitrogen* 10 mg/dL (5-24); Creatinine* 0.6 mg/dL (0.5-1.5); Est. Creatinine Clearance* 126.99; Estimated Glomerular Filt Rate 117 ml/min
--- NOTE | 2023-07-11 12:47 | PM.OBPNVD1 ---
OB - PN:Subj Subjective Date Seen: 07/11/23 Interval history: The patient feels well.? Her pain is well controlled with current medications.? She has no new complaints.? Urinary output is adequate and she is voiding without difficulty.? Tolerating regular diet. Has small amount of rubra lochia. She is and reports it is going well.?Blood pressures have been well controlled, denies headache, blurriness or spots in her vision, upper abdominal pain. Magnesium discontinued at 7:00 a.m. this morning, HELLP labs within normal limits. OB - PN: Obj Exam Physical Exam: Vital signs: Temp Pulse Resp BP Pulse Ox O2 Del Method 98.0 F 86 16 134/86 98 Room Air 07/11/23 08:42 07/11/23 08:42 07/11/23 08:42 07/11/23 08:42 07/11/23 08:42 07/11/23 08:42 Routine Cardiovascular Exam: Cardiovascular: Present RRR Routine Abdominal Exam: Abdominal: Present distended, soft and tenderness; Absent guarding Fundus: Present firm Routine Extremities Exam: Extremities: Present pulses intact and pedal edema; Absent tenderness Urinary Catheter Management: Urethral: Cath placed during this visit: yes, but has since been removed by the nurse Urethral indwelling: Yes Reason for continuing: decision to DC catheter Insertion date: 07/09/23 Insertion time: 11:00 Removal date: 07/11/23 Removal time: 06:43 OB - PN: Obj Data Labs Labs: Laboratory Results - last 24 hr 07/10/23 07/10/23 07/11/23 17:28 22:50 05:05 WBC 12.59 H 11.36 H 9.37 RBC 3.54 L 3.49 L 3.45 L Hgb 9.5 L 9.2 L 9.1 L Hct 28.8 L 28.3 L 28.2 L MCV 81 81 82 MCH 27 26 26 MCHC 33 33 32 Plt Count 259 239 258 BUN 11 10 Creatinine 0.7 0.6 Estimated Creat Clear 108.85 126.99 Estimated GFR 113 117 AST 28 34 ALT 19 19 07/11/23 10:17 WBC 9.56 RBC 3.33 L Hgb 8.8 L Hct 27.4 L MCV 82 MCH 26 MCHC 32 Plt Count 243 BUN 10 Creatinine 0.6 Estimated Creat Clear 126.99 Estimated GFR 117 AST 28 ALT 20 OB - PN: A/P Delivery Assessment and Plan (1) Chronic hypertension with superimposed preeclampsia: Problem details: Superimposed preeclampsia with severe features due to severey elevated blood pressures. Status: Acute Assessment and Plan: Magnesium discontinued this a.m., blood pressure is in normal range, HELLP labs normal, asymptomatic, continue current antihypertensive medications and monitor closely (2) Obesity (BMI 30-39.9): Problem details: Increased risk for VTE postoperatively Status: Acute Assessment and Plan: Continue enoxaparin prophylaxis while hospitalized (3) Advanced maternal age (AMA) in : Status: Acute (4) Anxiety: Problem details: Mood stable Status: Acute (5) Acute blood loss as cause of postoperative anemia: Problem details: In the setting of chronic anemia during , hemoglobin 8.8, asymptomatic Status: Acute Assessment and Plan: Start iron supplementation after 1st bowel movement Plan day: 1 Plan: routine care
[2023-07-11] MEDS: MAG HYDROX/ALUMINUM HYD/SIMETH 30 ML ORAL.SUSP PO (20:13)
[2023-07-11] MEDS: MAGNESIUM HYDROXIDE 30 ML ORAL.SUSP PO (20:13)
[2023-07-11] MEDS: ACETAMINOPHEN 500 MG TABLET 1000 MG PO (23:48)
[2023-07-12 04:19] VITALS: BP 132/81; PULSE 72; RESP 16; TEMP 36.9; O2SAT 97
[2023-07-12] MEDS: DOCUSATE SODIUM 100 MG CAPSULE PO (07:46)
--- NOTE | 2023-07-12 07:57 | PM.OBDSVD1 ---
DS: Providers Provider Date Seen: 07/12/23 Date of admission: 07/08/23 15:23 Primary care physician: Lesa Singh MD Admitting Clinician: Joya Forbes MD Consults: Director Workers Compensation Physician on discharge: Joya Forbes MD Date of Discharge: 07/12/23 DS: Diagnosis Discharge Diagnosis (1) Acute blood loss as cause of postoperative anemia: Status: Acute Problem details: In the setting of chronic anemia during , hemoglobin 8.8, asymptomatic (2) Chronic hypertension with superimposed preeclampsia: Status: Acute Problem details: Superimposed preeclampsia with severe features due to severely elevated blood pressures. (3) Anemia complicating : Status: Acute (4) Advanced maternal age (AMA) in : Status: Acute (5) Obesity (BMI 30-39.9): Status: Acute Problem details: Increased risk for VTE postoperatively (6) Anxiety: Status: Acute Problem details: Mood stable Exam Const: Vital Signs, click to edit/add: Vital Signs - 24 hr 07/11/23 08:42 07/11/23 16:12 07/11/23 20:00 Temperature 98.0 F 98.2 F Pulse Rate [Blood Pressure Cuff] 86 86 78 Respiratory Rate 16 16 Blood Pressure [Ri ght Arm] 134/86 146/84 H 171/101 H Pulse Oximetry 98 98 Oxygen Delivery Me thod Room Air Room Air 07/11/23 20:15 07/11/23 20:28 07/12/23 04:19 Temperature 98.6 F 98.4 F Pulse Rate [Blood Pressure Cuff] 78 72 Respiratory Rate 16 16 Blood Pressure [Ri ght Arm] 149/84 H 134/78 132/81 Pulse Oximetry 98 97 Oxygen Delivery Me thod Room Air Room Air Documenting provider has reviewed patient's vital signs: yes Common normals: no apparent distress General appearance: cooperative and comfortable Chest: Nipple/areola: nipples/areola normal Resp: Common normals: normal respiratory effort GI: Palpation: tender; no guarding Other: Fundus firm below umbilicus Extremity: General: edema; no calf tenderness Neuro: Speech: speech normal Psych: Mood and affect: euthymic mood OB - DS: Summary Hospital Course Hospital Course: The patient is a 38 year old G 1 P 0 at 38w4 gestation that was admitted to the Center on 09/18/23 for induction of labor secondary to chronic hypertension with superimposed preeclampsia. She developed nonreassuring heart rate remote from delivery and had a delivery, see operative note for details. She delivered a viable female . She is breast feeding. the patient has done well, received IV magnesium for seizure prophylaxis until 24 hours and blood pressures have been below the severe range since delivery, anemia is asymptomatic, pain is well controlled on oral medications, voiding and having bowel movements, ambulating without difficulty. Peripartum Data delivery method: Primary C/S; Labored Laceration description: None Episiotomy description: None Procedures: Procedures Operation Date: 07/10/23 06:45 Actual Procedure Side Surgeon p Primary Transverse Section; excision of abdominal skin lesion Christal Land MD Gender: Female Discharge Plan: Home Time Spent with Patient Time attestation: Total time spent providing and/or coordinating discharge services: Time spent: Greater than 30 minutes Discharge Plan Discharge Disposition: Home, Self-Care Date of Admission: 07/08/23 15:23 Attending Provider on Discharge: Daniel Lehman Primary Care Provider: Lesa Singh Condition: Stable Anticipated Discharge Date/Time: 07/12/23 11:08 Discharge Medications: New acetaminophen 500 mg Tablet 1,000 mg PO Q6H PRN (Reason: Pain) Qty: 30 0RF docusate sodium 100 mg Capsule 100 mg PO DAILY Qty: 60 0RF ibuprofen 600 mg Tablet 600 mg PO Q6H PRN (Reason: Pain) Qty: 60 0RF oxycodone 5 mg Tablet 5 - 10 mg PO Q4H PRN (Reason: Pain) 4 Days Qty: 12 0RF Continued omeprazole 20 mg capsule,delayed release(DR/EC) 20 mg PO BID Qty: 60 0RF Hold Instructions: not needing it Zyrtec 10 mg capsule 10 mg PO QDAY PRN labetalol 100 mg tablet 200 mg PO BID hydralazine 25 mg tablet 25 mg PO TID vit [id number] 65-1-250 mg combo pack 1 pkg PO DAILY ferrous sulfate 325 mg (65 mg iron) tablet 325 mg PO Q OTHER DAY Qty: 30 2RF Discharge Orders: Discharge Order (Routine); Ordered 07/12/23 Ordered By: Daniel Lehman Patient Education: OB High Blood Pressure DC, OB /Breast Feeding Activity Detail: No lifting more than 15 lbs for 6 weeks, no driving for 1-2 weeks until you can stop on the brakes without hesitating due to pain, no driving while taking opioid medication, nothing in vagina for 6 weeks Discharge Diet: Regular Follow Up Appointments: Lesa Singh MD [Primary Care Provider] - Forms: [employer] Info Instructions
[2023-07-12 09:07] VITALS: BP 126/81; PULSE 70; RESP 16; TEMP 36.8; O2SAT 98
[2023-07-12] MEDS: LABETALOL HCL 100 MG TABLET 200 MG PO (11:38)
[2023-07-12] MEDS: IBUPROFEN 600 MG TABLET PO (13:07)
--- NOTE | 2023-07-15 15:21 | SUR.OPER ---
Verified Josefa Hearn RN charting complete
== END 2023-07-12 13:10 | disposition home or self-care (01) | DRG 540 ==
PROVIDERS: Obstetrics & Gynecology; Admitting Provider Obstetrics & Gynecology; PCP Family Medicine; Visit Provider Obstetrics & Gynecology
PROC: (CPT 59514; principal; 2023-07-10 06:30)
DX: O10.92 Unspecified pre-existing hypertension complicating childbirth (principal); O76 Abnormality in fetal heart rate and rhythm complicating labor and delivery; O14.14 Severe pre-eclampsia complicating childbirth; L98.8 Other specified disorders of the skin and subcutaneous tissue; O99.344 Other mental disorders complicating childbirth; F41.9 Anxiety disorder, unspecified; O99.02 Anemia complicating childbirth; D62 Acute posthemorrhagic anemia; O99.214 Obesity complicating childbirth; E66.9 Obesity, unspecified; Z86.16 Personal history of COVID-19; G89.18 Other acute postprocedural pain; Z37.0 Single live birth; Z3A.38 38 weeks gestation of pregnancy
CPT/HCPCS: 01967; 01968; 36415; 59200; 64488; 76819; 76942; 82565; 82570; 83735; 84156; 84450; 84460; 84520; 85025; 85027; 85384; 85610; 85730; 86850; 86900; 86901; 88305; 88307; 99140; A9270; C1726; C9290; J0360; J0665; J1650; J1885; J2274; J2371; J2405; J2590; J2795; J3010; J3475; J7120; S0020

== ENCOUNTER 2023-08-02 09:31 | Outpatient (CLI) | payer BC, SELFPAY ==
--- NOTE | 2023-08-02 10:50 | P.LACCB_ITS ---
Consult Note - Mom Date of Visit Date of visit: 08/02/23 baby registry sales consultant: Anita Goodrich Visit Code: Visit Patient's Information Phone number: [phone] : 1 Para: 1 Allergies nifedipine Allergy (Verified 07/29/23 10:05) shellfish Allergy (Severe, Uncoded 07/29/23 10:05) Mother's Medical History: Medical History (Updated 07/29/23 @ 11:14 by Monique Manning CNM) Chronic hypertension with superimposed preeclampsia ?O11.9 - Pre-existing hypertension with pre-eclampsia, unspecified trimester (ICD-10) Advanced maternal age (AMA) in Obesity (BMI 30-39.9) ?E66.9 - Obesity, unspecified (ICD-10) Anxiety ?F41.9 - Anxiety disorder, unspecified (ICD-10) Delivery Information Delivery type: Primary C/S; Labored Weeks Gestation: 38.0 Gestational Age: AGA Baby's Information Medications: tylenol, ibuprofen, pnv, iron, cetirizine, hydralazine, labatolol Baby's Age at Visit: 3 weeks Reason for Consult Reason for Consult: not sure how to use her pump Past Experience Past Experience: No Assessments/Interventions Assessments/Interventions: Patient is a mom of a now three week old ex- term AGA baby. She reports she was nursing up until about a week ago but stopped b/c she noticed her nipples were turning a greyish color and her areola was red when baby had finished nursing. She denied any pain with nursing but had heard stories that your nipple can come off with if there's a bad latch and she didn't want to loose my nipple. She'd like to give baby expressed breast milk and has been doing some hand expression, but isn't getting enough to satisfy baby. She watched a video on how operate her new Spectra pump, but stated it was a little confusing. Breasts WNL- symmetrical with rounded lower quadrants, intramammary distance is < 1.5 inches. Nipples are a little short but everted and don't flatten or retract on compression. No damage or signs of yeast noted. Mom denied any discomfort with the temperature change after nursing or when getting out of the shower. She also denied any s/s of yvonne. Stated her nipples never had damage and nursing was never painful, she just noticed the robles color of her nipples after baby had nursed. Baby didn't come today so an assessment of her mouth (or latch) couldn't be done. The pump was reviewed including: how to put it together, explanation of the settings (cycle and vacuum), how to use it, and how often/how long to pump. Mom was measured and a smaller flange size was suggested but in the meantime she completed a 20 minute session with the 24 mm flanges. We ended with a few minutes of hand expression and mom has pretty good technique stating she started this in the hospital. We also reviewed that although a nipple can get badly damaged with a poor latch or poor fitting flange, it would never come off. If she decides she'd like to try putting baby to breast she could schedule another appointment so the latch could be assessed. Encouraged her to call with any future questions/concerns. Meds Home Medications and Allergies Home Medications Medication Instructions Recorded Confirmed Type cetirizine 10 mg capsule (Zyrtec) 10 mg PO QDAY PRN 07/26/22 07/29/23 History hydralazine 25 mg tablet 25 mg PO TID 07/26/22 07/29/23 History labetalol 100 mg tablet 200 mg PO BID 07/26/22 07/29/23 History [id number] fum 65 mg 1 pkg PO DAILY 01/23/23 07/29/23 History iron-folic acid 1 mg-dha 250 mg oral margarita Allergies Allergy/AdvReac Type Severity Reaction Status Date / Time nifedipine Allergy Verified 07/29/23 10:05 shellfish Allergy Severe Uncoded 07/29/23 10:05
== END 2023-08-02 09:32 | disposition home or self-care (01) ==
PROVIDERS: Visit Provider Obstetrics & Gynecology
DX: Z39.1 Encounter for care and examination of lactating mother (principal)
CPT/HCPCS: 99211

== ENCOUNTER 2023-11-05 07:11 | Outpatient (CLI) | payer OTHER, SELFPAY | END 2023-11-05 07:12 | disposition home or self-care (01) | LOC: NFLDREF 07:12 | PROVIDERS: PCP Physician Assistant; Visit Provider Physician Assistant | DX: N92.0 Excessive and frequent menstruation with regular cycle (principal); Z13.29 Encounter for screening for other suspected endocrine disorder | CPT/HCPCS: 84443 ==

== ENCOUNTER 2023-11-06 15:46 | Outpatient (CLI) | payer OTHER, SELFPAY ==
--- NOTE | 2023-11-06 16:00 | CRLHL7_ITS ---
For Patients: As a result of the Century Cures Act, medical imaging exams and procedure reports are released immediately into your electronic medical record. You may view this report before your referring provider. If you have questions, please contact your health care provider. INDICATION: Abnormal uterine bleeding COMPARISON: none TECHNIQUE: 2D lake scale and color Doppler images were acquired of the pelvis using a transabdominal and transvaginal approach. FINDINGS: Sonographic images demonstrate a normal size and smooth outer contour of the uterus. Uterus measures 8.6 cm in length by 4.6 cm in AP diameter by 6.6 cm in transverse dimension. section scar. The endometrial lining measures 7 mm in composite thickness. The right ovary measures 3.0 x 1.2 x 2.2 cm in size and the left ovary measures 3.7 x 2.8 x 3.0 cm. The ovaries demonstrate normal arterial and venous blood flow on color Doppler analysis. There are no suspicious fluid collections within the cul-de-sac. Simple right ovarian cyst measures 2.8 x 2.2 x 2.5 cm. IMPRESSION: Endometrial thickness 7 millimeters. No endometrial fluid. No uterine fibroid. Dictated by Jeffrey Royal MD @ 11/07/2023 9:42:28 AM (Electronically Signed)
== END 2023-11-06 15:47 | disposition home or self-care (01) ==
LOC: US 15:49
PROVIDERS: Visit Provider Physician Assistant
DX: N93.8 Other specified abnormal uterine and vaginal bleeding (principal); R93.89 Abnormal findings on diagnostic imaging of other specified body structures
CPT/HCPCS: 76830; 76856

== ENCOUNTER 2024-02-05 12:35 | Emergency (ER) | payer OTHER, SELFPAY ==
[2024-02-05 12:41] VITALS: BP 155/88; PULSE 68; RESP 18; TEMP 37.2; O2SAT 98; BMI 38.2
--- NOTE | 2024-02-05 13:48 | ED_ITS ---
HPI - General Adult General Chief complaint: Neuro Symptoms/Altered Deficit Stated complaint: Possible stroke- came from clinic Time Seen by Provider: 02/05/24 13:26 History of Present Illness HPI narrative: This 38-year-old female was sent here from clinic because of concern of some alt ered sensation in the right side of her face, her right hand, and her right foot. These symptoms occurred or were noticed upon awakening this morning. She does not have any visual changes or unilateral weakness. She does not have any facial asymmetry. She states that she could not hear very well from her right ear upon awakening this morning but then she heard a pop and now states she is hearing normally bilaterally. Related Data Home Medications Medication Instructions Recorded Confirmed cetirizine 10 mg capsule (Zyrtec) 10 mg PO QDAY PRN 07/26/22 11/12/23 hydralazine 25 mg tablet 25 mg PO TID 07/26/22 02/05/24 labetalol 100 mg tablet 200 mg PO BID 07/26/22 02/05/24 [id number] fum 65 mg 1 pkg PO DAILY 01/23/23 11/12/23 iron-folic acid 1 mg-dha 250 mg oral jose Previous Rx's Medication Instructions Recorded ibuprofen 600 mg tablet 600 mg PO Q6H PRN Pain #60 tabs 07/12/23 norethindrone (contraceptive) 0.35 0.35 mg PO QDAY #84 tabs 08/26/23 mg tablet ketorolac 10 mg tablet 10 mg PO Q8H 5 days #15 tabs 02/05/24 methylprednisolone 4 mg tablets in See Rx Instructions PO .COMPLEX 02/05/24 a dose pack (Medrol (Jose)) #21 ea Allergies Allergy/AdvReac Type Severity Reaction Status Date / Time latex Allergy Severe Difficulty Verified 11/12/23 14:18 Breathing nifedipine Allergy Verified 11/12/23 14:18 shellfish Allergy Severe Uncoded 11/12/23 14:18 Review of Systems Status of ROS: Reports: 10 or more systems reviewed and unremarkable except as noted in History and below Narrative: Constitutional: No fevers, no weight gain or loss. Eyes: No discharge. No vision changes. HENT: No congestion, no sore throat, no ear pain. Cardiovascular: No chest pain, no palpitations. Respiratory: No shortness of breath, no wheezes, no cough. Gastrointestinal: No abdominal pain, no vomiting, no diarrhea. Genitourinary: No dysuria, no hematuria. Musculoskeletal: Normal range of motion. Skin: No rashes, no pruritis. Neurological: No dizziness, weakness, speech change. Sensory changes described above. Endo/Heme/Allergies: No bruising or bleeding. No polydipsia. Pysch: no suicidality, no anxiety, no insomnia. All other systems reviewed and are negative. PFSH PFSH Medical History Acute blood loss as cause of postoperative anemia ?D62 - Acute posthemorrhagic anemia (ICD-10) Chronic hypertension affecting ?O10.919 - Unspecified pre-existing hypertension complicating , unspecified trimester (ICD-10) Chronic hypertension with superimposed preeclampsia ?O11.9 - Pre-existing hypertension with pre-eclampsia, unspecified trimester (ICD-10) Obesity (BMI 30-39.9) ?E66.9 - Obesity, unspecified (ICD-10) Anxiety ?F41.9 - Anxiety disorder, unspecified (ICD-10) Surgical History S/P section ?Z98.891 - History of uterine scar from previous surgery (ICD-10) History of cholecystectomy ?Z90.49 - Acquired absence of other specified parts of digestive tract (ICD- 10) Family History Mother High blood pressure Diabetes Breast cancer Father High blood pressure 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 Non-smoker. Alcohol use: 2-3 per month. What is your current living situation?: I presently have a place to live Problems where you live: no known problems In the past 12 months, utilities in danger of being shut off: no In past 12 months, lack of transportation kept you from medical appts, meetings, work, or getting things needed for daily living: no In the past 12 mos, have been you worried that your food would run out before you had money to buy more?: never true In the past 12 mos, the food you bought just didn't last and you didn't have m oney to buy more?: never true Smoking Status: Never smoker How often does anyone, including family, friends and others, physically hurt you : never How often does anyone, including family, friends and others, insult or talk down to you: never How often does anyone, including family, friends and others, threaten you with harm: never How often does anyone, including family, friends and others, scream or curse at you: never Little interest or pleasure in doing things: not at all Feeling down, depressed, or hopeless: not at all Exam Narrative: Exam Narrative: Constitutional: Well-developed, well-nourished, no acute distress. HEENT: Normocephalic, atraumatic. Neck: Normal range of motion. Nontender. Supple. Heart: Regular. No murmurs. Normal rate. Intact distal pulses. Lungs: Clear to auscultation. No chest discomfort. No wheezes, rhonchi, or rales. Abdomen: Normal bowel sounds. Nontender. No rebound tenderness. Genitalia: Deferred. Back: No midline tenderness. Normal range of motion. Extremities: Normal range of motion. No injury. Skin: Intact. No rash. Warm. No erythema or pallor. Neurologic: No altered sensation. No weakness. Alert and oriented. No facial asymmetry. Tongue is midline. [id number] is normal. No pronator drift. Radiology Clerk strength is equal bilaterally. Able to raise each leg from the bed. Psychiatric: No suicidality. No anxiety or depression. No insomnia. Nursing notes and vitals signs are reviewed. Const: Vital Signs, click to edit/add: Vital Signs - 24 hr 02/05/24 12:41 02/05/24 17:53 Temperature 98.9 F Pulse Rate [Right Pulse Oximeter] 68 63 Respiratory Rate 18 Blood Pressure [Ri ght Upper Arm] 155/88 H 147/91 H Pulse Oximetry 98 99 Oxygen Delivery Me thod Room Air Room Air Course Vital Signs Vital signs: Initial Vital Signs Temperature 98.9 F 02/05/24 12:41 Temperature Source Temporal Artery Scan 02/05/24 12:41 Pulse Rate 68 02/05/24 12:41 Respiratory Rate 18 02/05/24 12:41 Blood Pressure 155/88 H 02/05/24 12:41 Blood Pressure Mean 110 H 02/05/24 12:41 Blood Pressure Position Sitting 02/05/24 12:41 Pulse Oximetry 98 02/05/24 12:41 Oxygen Delivery Method Room Air 02/05/24 12:41 Vital Signs Temperature 98.9 F 02/05/24 12:41 Pulse Rate 68 02/05/24 12:41 Respiratory Rate 18 02/05/24 12:41 Blood Pressure 155/88 H 02/05/24 12:41 Pulse Oximetry 98 02/05/24 12:41 Oxygen Delivery Method Room Air 02/05/24 12:41 Temperature 98.9 F 02/05/24 12:41 Pulse Rate 63 02/05/24 17:53 Respiratory Rate 18 02/05/24 12:41 Blood Pressure 147/91 H 02/05/24 17:53 Pulse Oximetry 99 02/05/24 17:53 Oxygen Delivery Method Room Air 02/05/24 17:53 Medical Decision Making MDM Narrative Medical decision making narrative: This patient comes in reporting some tingling sensation in the right side of her face and also into her right hand and right foot. These symptoms started this morning. She has a completely normal neurologic exam and has normal vital signs. She went to clinic and was sent here to have an MRI done. She did have a MRI with and without contrast and this returns with no acute findings to explain her symptoms. The patient is reassured with these results and is okay to return home. I did prescribe Medrol Dosepak and Toradol for symptomatic relief. I described signs and symptoms that would indicate a need for return and re-evaluation. Imaging Data MR Brain: Radiologist's impression: 1. No acute intracranial process. 2. Few scattered nonspecific T2 FLAIR hyperintense white matter foci. Differential considerations include sequela of migraine headaches or chronic ischemic microvascular disease. Discharge Plan Discharge Clinical Impression: Paresthesias Patient Disposition: Home, Self-Care Condition: Stable Additional Instructions: Take medication as prescribed. Follow up with MD or return if symptoms are persistent or worsening. Prescriptions: New ketorolac 10 mg tablet 10 mg PO Q8H 5 Days Qty: 15 0RF methylprednisolone [Medrol (Jose)] 4 mg tablets,dose pack See Rx Instructions .ROUTE .COMPLEX Qty: 21 0RF Rx Instructions: orally per package directions No Action norethindrone (contraceptive) 0.35 mg tablet 0.35 mg PO QDAY Qty: 84 4RF Zyrtec 10 mg capsule 10 mg PO QDAY PRN labetalol 100 mg tablet 200 mg PO BID hydralazine 25 mg tablet 25 mg PO TID vit [id number]-[id number]-dha 65-1-250 mg combo pack 1 pkg PO DAILY ibuprofen 600 mg Tablet 600 mg PO Q6H PRN (Reason: Pain) Qty: 60 0RF Follow Up/Referrals: Provider,Not a Local [Primary Care Provider] - Stand Alone Forms: MyHealth Info Instructions
--- NOTE | 2024-02-05 14:28 | MR_ITS ---
Patient: CHRISTINE SANFORD Facility:?[facility] Patient ID:?[id number] Site Patient ID:?[id number] Site :?[id number] Study:?MRI-Head W/ and W/O Cont 20 CC DOATERM-02/05/2024 3:59:37 PM Ordering Physician:CHAVEZ Final Report: Indication: Face, hand and foot tingling. Technique: Multiplanar, multisequence MRI of the brain was performed without and with intravenous contrast. Contrast: 20 cc Dotarem. Comparison: None relevant available at this institution. Findings: The corpus callosum, optic chiasm, pituitary gland, clivus, brainstem and cerebellum appear intact. The craniocervical junction appears preserved. There is no restricted diffusion. No intracranial hemorrhage. The ventricles are proportionate to the cerebral sulci. The 4th ventricle appears midline. The basal cisterns appear patent. No abnormal extra-axial fluid collection identified. Few scattered nonspecific T2 FLAIR hyperintense white matter foci. There is no intracranial mass, abnormal mass-effect or midline shift identified. No abnormal enhancement. Major intracranial vascular flow voids appear grossly intact. Both globes are preserved. Mild right paranasal sinus mucosal disease. Impression: 1. No acute intracranial process. 2. Few scattered nonspecific T2 FLAIR hyperintense white matter foci. Differential considerations include sequela of migraine headaches or chronic ischemic microvascular disease. Dictated by Gomez Tipton MD @ 02/05/2024 4:11:27 PM Signed by:?Gomez Tipton MD @02/05/2024 4:11:27 PM (Electronic Signature)
[2024-02-05 17:53] VITALS: BP 147/91; PULSE 63; O2SAT 99
== END 2024-02-05 18:25 | disposition home or self-care (01) ==
PROVIDERS: Emergency Provider Emergency Medicine Emergency Medical Services
DX: R20.2 Paresthesia of skin (principal)
CPT/HCPCS: 70553; 99284; A9575